=== PATIENT | male | born 1960 | race Two or more races ===

== ENCOUNTER → 2019-11-10 | Day surgery (SDC) | payer OTHER ==
[~2019-11-10] VITALS: Ht 170.2 cm; Wt 77.1 kg
[~2019-11-10] MED LIST: FLUMAZENIL 0.1 MG/ML INJ 10ML MDV IV ONE; LIDOCAINE VISCOUS 2% 15ML UD ONE; NALOXONE HCL 0.4 MG/ML VIAL ONE; diphenhdrAMINE HCL 50 MG/1 ML VL ONE
[2019-11-10 07:22] LABS: Basophils # (auto) 0 uL; Basophils % (auto) 0.6 % (0.0-2.0); Eosinophils # (auto) 0 uL; Eosinophils % (auto) 0.7 % (0.0-7.0); Hematocrit 42.7 % (41.0-53.0); Hemoglobin 14.8 g/dL (13.5-17.5); Lymphocytes # (auto) 1.4 uL; Lymphocytes % (auto) 23.7 % (10.0-50.0); Mean Corpuscular Hemoglobin 31.4 pg (28.0-32.0); Mean Corpuscular Hgb Conc. 34.6 g/dL (32.0-36.0); Mean Corpuscular Volume 90.8 fL (80.0-100.0); Monocytes # (auto) 0.5 uL; Monocytes % (auto) 9.3 % (0.0-12.0); Neutrophils # (auto) 3.8 uL; Neutrophils % (auto) 65.7 % (37.0-80.0); Platelet Count (auto) 189 10^3/uL (140-450); Red Blood Cells 4.71 10^6/uL (4.5-5.90); Red Cell Distribution Width 12.9 % (11.8-14.3); White Blood Cell 5.7 10^3/uL (4.4-10.8)
[2019-11-10 07:42] LABS: INR 1.14 (0.9-1.15); Partial Thromboplastin Time 30.4 sec (23.64-32.05)
[2019-11-10] MEDS: fentaNYL CITRATE 100 MCG/2 ML VL ONE ×3 (09:10→09:18)
[2019-11-10] MEDS: MIDAZOLAM HCL 5 MG/ML-1ML VIAL ONE ×3 (09:10→09:18)
[2019-11-10 10:00] VITALS: BP 112/73
== END | disposition home or self-care (01) ==
LOC: GI 05:49
PROVIDERS: ATTEND Internal Medicine Gastroenterology
DX: K92.1 Melena (principal); K29.50 Unspecified chronic gastritis without bleeding; K21.0 Gastro-esophageal reflux disease with esophagitis; B96.81 Helicobacter pylori [H. pylori] as the cause of diseases classified elsewhere; Z91.14 Patient's other noncompliance with medication regimen
CPT/HCPCS: 36415; 43239; 45378; 85025; 85610; 85730; 88305; 88342; J1200; J2250; J2310; J3010; J7030; 99152